=== PATIENT | male | born 1980 | race Hispanic/Latino ===

== ENCOUNTER 2020-10-09 17:58 | Inpatient (IN) | payer OTHER ==
--- NOTE | 2020-10-09 18:11 | Event Note ---
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 This initial assessment/diagnostic orders/clinical plan/treatment(s) is/are subject to change based on patients health status, clinical progression and re- assessment by fellow clinical providers in the ED. Further treatment and workup at subsequent clinical providers discretion. Patient/guardian urged not to elope from the ED as their condition may be serious if not clinically assessed and managed. Initial orders include: To ACC for rule out Covid/pneumonia/flu
[2020-10-09] MEDS ORDERED: ACETAMINOPHEN 500 MG TAB PO ONE (18:12)
[2020-10-09] MEDS ORDERED: SODIUM CHLORIDE 0.9% 1000 ML 1,000 ML IV ONE (18:13)
[2020-10-09 18:58] LABS: Basophils % (Auto) 0.2 % (0.0-1.8); Hematocrit 46.2 % (35.5-45.6); Hemoglobin 15.6 gm/dl (11.8-15.2); Lymphocytes # (Auto) 1.3 K/mm3 (1.2-5.4); Lymphocytes % (Auto) 13.4 % (13.4-35.0); Mean Corpuscular HGB Conc 34 % (32-34); Mean Corpuscular Volume 86 fl (84-94); Monocytes # (Auto) 0.7 K/mm3 (0.0-0.8); Monocytes % (Auto) 6.9 % (0.0-7.3); Platelet Count 235 K/mm3 (140-440); Red Blood Count 5.37 M/mm3 (3.65-5.03); Red Cell Distribution Width 13.5 % (13.2-15.2)
--- NOTE | 2020-10-09 19:05 | XRay Report ---
CHEST 1 VIEW INDICATION: COUGH, FEVER COMPARISON: None FINDINGS: Support devices: None Heart: Normal Lungs/Pleura: Minimal parenchymal density in the right base and right perihilar region. This could re present atelectasis, but developing pneumonia cannot be entirely excluded, and follow-up is suggested . IMPRESSION: 1. Minimal right-sided parenchymal disease. Suggest follow-up. Signer Name: David An MD Signed: 10/09/2020 7:01 PM Workstation Name: [id number]
[2020-10-09 19:10] LABS: Alanine Aminotransferase 28 units/L (7-56); Albumin 4.2 g/dL (3.9-5); BUN/Creatinine Ratio 13; Blood Urea Nitrogen 13 mg/dL (9-20); Calcium 8.8 mg/dL (8.4-10.2); Hemolysis Index 33
--- NOTE | 2020-10-09 19:32 | Emergency Department Report ---
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 He states that he has had negative Covid test performed on October 05 and . Cough is nonproductive. He denies significant dyspnea but noted to have a saturation of 90% on room air. He denies GI symptoms or underlying respiratory illness. ED Review of Systems ROS: Stated complaint: FEVER/BACK PAIN/COUGH Other details as noted in HPI Comment: All other systems reviewed and negative ED Past Medical Hx - Past Medical History Hx Hypertension: Yes - Surgical History Past Surgical History?: No ED Physical Exam - General Limitations: No Limitations - Other Other exam information: General: No acute distress Head: Atraumatic Eyes: normal appearance ENT: Moist mucous membranes Neck: Normal appearance, no midline tenderness Chest: Crackles right base, no accessory muscle use CV: Mild tachycardia evaluate Abdomen: Soft, normal bowel sounds, nontender, nondistended, no rebound or guarding Back: Normal inspection Extremity: Normal inspection, full range of motion Neuro: Alert O x 3, no facial asymmetry, speech clear, no gross motor sensory deficit Psych: Appropriate behavior Skin: No rash ED Course Vital Signs 10/09/20 10/09/20 10/10/20 18:11 18:43 01:02 Temperature 101.9 F H 97.7 F Pulse Rate 108 H 77 Respiratory 20 24 18 Rate Blood Pressure 122/80 103/65 O2 Sat by Pulse 90 96 Oximetry 10/10/20 01:05 Temperature Pulse Rate Respiratory 20 Rate Blood Pressure O2 Sat by Pulse 98 Oximetry ED Medical Decision Making - Lab Data Result diagrams: 10/10/20 04:28 10/10/20 04:28 Lab Results 10/09/20 10/09/20 10/09/20 Range/Units 18:36 18:36 18:36 WBC 10.0 (4.5-11.0) K/mm3 RBC 5.37 H (3.65-5.03) M/mm3 Hgb 15.6 H (11.8-15.2) gm/dl Hct 46.2 H (35.5-45.6) % MCV 86 (84-94) fl MCH 29 (28-32) pg MCHC 34 (32-34) % RDW 13.5 (13.2-15.2) % Plt Count 235 (140-440) K/mm3 Lymph % (Auto) 13.4 (13.4-35.0) % [place] % (Auto) 6.9 (0.0-7.3) % Eos % (Auto) 0.0 (0.0-4.3) % Baso % (Auto) 0.2 (0.0-1.8) % Lymph # (Auto) 1.3 (1.2-5.4) K/mm3 [place] # (Auto) 0.7 (0.0-0.8) K/mm3 Eos # (Auto) 0.0 (0.0-0.4) K/mm3 Baso # (Auto) 0.0 (0.0-0.1) K/mm3 Seg Neutrophils % 79.5 H (40.0-70.0) % Seg Neutrophils # 7.9 H (1.8-7.7) K/mm3 Sodium 133 L (137-145) mmol/L Potassium 4.0 (3.6-5.0) mmol/L Chloride 96.6 L (98-107) mmol/L Carbon Dioxide 24 (22-30) mmol/L Anion Gap 16 mmol/L BUN 13 (9-20) mg/dL Creatinine 1.0 (0.8-1.3) mg/dL Estimated GFR > 60 ml/min BUN/Creatinine Ratio 13 % Glucose 121 H (75-100) mg/dL Lactic Acid 1.10 (0.7-2.0) mmol/L Calcium 8.8 (8.4-10.2) mg/dL Total Bilirubin 0.40 (0.1-1.2) mg/dL AST 29 (5-40) units/L ALT 28 (7-56) units/L Alkaline Phosphatase 51 (35-129) units/L Total Protein 7.4 (6.3-8.2) g/dL Albumin 4.2 (3.9-5) g/dL Albumin/Globulin Ratio 1.3 % - Radiology Data Radiology results: report reviewed Chest x-ray: Mild right-sided parenchymal disease atelectasis with could also be developing pneumonia - Medical Decision Making 39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 Given clinical picture and x-ray findings patient be treated for community-acquired pneumonia and received decadron. He reports 2 recent negative rapid Covid test a repeat Covid test and order set will be ordered here in the ED. patient p rovided Tylenol for fever. Lactic acid normal without signs of severe sepsis or septic shock. ID Consult ordered. Hospitalist to admit. Critical Care Time: No Critical care attestation.: If time is entered above; I have spent that time in minutes in the direct care of this critically ill patient, excluding procedure time. ED Disposition Clinical Impression: Pneumonia, Hypoxia, Suspected 2019 novel coronavirus infection HTN (hypertension) Qualifiers: Hypertension type: essential hypertension Qualified Code(s): I10 - Essential (primary) hypertension Disposition: OP ADMIT IP TO THIS HOSP Is pt being admited?: Yes Condition: Stable Time of Disposition: 19:37 (DR Burdick/hospitalist)
[2020-10-09] MEDS ORDERED: cefTRIAXone/NS 2 GM/100 ML 2 GM/100 ML BAG IV ONE (19:35)
[2020-10-09] MEDS ORDERED: AZITHROMYCIN 500 MG in SODIUM CHLORIDE 0.9% 250ML 250 ML IV ONE (19:35)
[2020-10-09] MEDS ORDERED: dexAMETHasone 4 MG/ML VIAL IV ONE (19:39)
[2020-10-09 20:10] LABS: C-Reactive Protein 2.4 mg/dL (0.00-1.30)
--- NOTE | 2020-10-10 00:58 | History and Physical Report ---
History of Present Illness Date of examination: 10/09/20 Date of admission: 10/09/20 19:38 Chief complaint: Cough and fever since October 01 History of present illness: 39-year-old male with history of hypertension comes in for fever and cough since October 01 patient suspected, Covid tested on and .. No results were negative. Cough is persistent and nonproductive. No significant shortness of breath. Breath oxygen saturations were 90% on room air. Ambulatory sats were low. Denies any GI symptoms or anosmia or loss of taste. - Past Medical History --Hypertension: Yes - Surgical History --Past Surgical History?: No --Family and social history noncontributory Review of Systems ROS: Stated complaint: FEVER/BACK PAIN/COUGH Other details as noted in HPI Comment: All other systems reviewed and negative Medications and Allergies Allergies Allergy/AdvReac Type Severity Reaction Status Date / Time No Known Allergies Allergy Verified 10/09/20 19:37 Exam - Constitutional Vitals: Temp Pulse Resp BP Pulse Ox 101.9 F H 108 H 24 122/80 90 10/09/20 18:11 10/09/20 18:11 10/09/20 18:43 10/09/20 18:11 10/09/20 18:11 General appearance: Present: no acute distress, well-nourished - EENT Eyes: Present: PERRL ENT: hearing intact, clear oral mucosa - Neck Neck: Present: supple, normal ROM - Respiratory Respiratory effort: normal Respiratory: bilateral: CTA, rhonchi (Scattered rhonchi) - Cardiovascular Heart Sounds: Present: S1 & S2. Absent: rub, click - Extremities Extremities: pulses symmetrical, No edema Peripheral Pulses: within normal limits - Abdominal General gastrointestinal: Present: soft, non-tender, non-distended, normal bowel sounds Male genitourinary: Present: normal - Integumentary Integumentary: Present: clear, warm, dry - Musculoskeletal Musculoskeletal: gait normal, strength equal bilaterally - Psychiatric Psychiatric: appropriate mood/affect, intact judgment & insight - Neurologic Neurologic: CNII-XII intact, moves all extremities - Allied Health Allied health notes reviewed: nursing, case management Results - Labs CBC & Chem 7: 10/10/20 04:28 10/10/20 04:28 Labs: Laboratory Last Values WBC 10.0 K/mm3 (4.5-11.0) 10/09/20 18:36 RBC 5.37 M/mm3 (3.65-5.03) H 10/09/20 18:36 Hgb 15.6 gm/dl (11.8-15.2) H 10/09/20 18:36 Hct 46.2 % (35.5-45.6) H 10/09/20 18:36 MCV 86 fl (84-94) 10/09/20 18:36 MCH 29 pg (28-32) 10/09/20 18:36 MCHC 34 % (32-34) 10/09/20 18:36 RDW 13.5 % (13.2-15.2) 10/09/20 18:36 Plt Count 235 K/mm3 (140-440) 10/09/20 18:36 Lymph % (Auto) 13.4 % (13.4-35.0) 10/09/20 18:36 [place] % (Auto) 6.9 % (0.0-7.3) 10/09/20 18:36 Eos % (Auto) 0.0 % (0.0-4.3) 10/09/20 18:36 Baso % (Auto) 0.2 % (0.0-1.8) 10/09/20 18:36 Lymph # (Auto) 1.3 K/mm3 (1.2-5.4) 10/09/20 18:36 [place] # (Auto) 0.7 K/mm3 (0.0-0.8) 10/09/20 18:36 Eos # (Auto) 0.0 K/mm3 (0.0-0.4) 10/09/20 18:36 Baso # (Auto) 0.0 K/mm3 (0.0-0.1) 10/09/20 18:36 Seg Neutrophils % 79.5 % (40.0-70.0) H 10/09/20 18:36 Seg Neutrophils # 7.9 K/mm3 (1.8-7.7) H 10/09/20 18:36 D-Dimer 333.31 ng/mlDDU (0-234) H 10/09/20 19:34 Sodium 133 mmol/L (137-145) L 10/09/20 18:36 Potassium 4.0 mmol/L (3.6-5.0) 10/09/20 18:36 Chloride 96.6 mmol/L (98-107) L 10/09/20 18:36 Carbon Dioxide 24 mmol/L (22-30) 10/09/20 18:36 Anion Gap 16 mmol/L 10/09/20 18:36 BUN 13 mg/dL (9-20) 10/09/20 18:36 Creatinine 1.0 mg/dL (0.8-1.3) 10/09/20 18:36 Estimated GFR > 60 ml/min 10/09/20 18:36 BUN/Creatinine Ratio 13 % 10/09/20 18:36 Glucose 116 mg/dL (75-100) H 10/09/20 19:34 Lactic Acid 1.10 mmol/L (0.7-2.0) 10/09/20 18:36 Calcium 8.8 mg/dL (8.4-10.2) 10/09/20 18:36 Ferritin 702.8 ng/mL (30.0-300.0) H 10/09/20 19:34 Total Bilirubin 0.40 mg/dL (0.1-1.2) 10/09/20 18:36 AST 29 units/L (5-40) 10/09/20 18:36 ALT 28 units/L (7-56) 10/09/20 18:36 Alkaline Phosphatase 51 units/L (35-129) 10/09/20 18:36 Lactate Dehydrogenase 324 units/L (91-180) H 10/09/20 19:34 C-Reactive Protein 2.40 mg/dL (0.00-1.30) H 10/09/20 19:34 Total Protein 7.4 g/dL (6.3-8.2) 10/09/20 18:36 Albumin 4.2 g/dL (3.9-5) 10/09/20 18:36 Albumin/Globulin Ratio 1.3 % 10/09/20 18:36 Influenza A (Rapid) Negative (Negative) 10/09/20 18:50 Influenza B (Rapid) Negative (Negative) 10/09/20 18:50 - Imaging and Cardiology Chest x-ray: report reviewed Imaging and Cardiology: Chest x-ray Minimal right-sided parenchymal disease Suggest follow-up Perez/IV: IV Catheter Type [Left INT / Saline Lock Antecubital] Assessment and Plan Advance Directives: Yes (Full code) Plan of care discussed with patient/family: Yes - Patient Problems (1) Acute respiratory failure with hypoxia Current Visit: Yes Status: Acute Plan to address problem: Patient is room air oxygen saturation 90% and ambulatory oxygen is about 84%. Patient is hypoxic and needs lots of oxygen supplements. Coronavirus in the differential diagnosis. (2) Right lower lobe pneumonia Current Visit: Yes Status: Acute Plan to address problem: Treat as community-acquired pneumonia for now. Patient started on IV ceftriaxone and IV azithromycin. (3) Suspected 2019 novel coronavirus infection Current Visit: Yes Status: Acute Plan to address problem: Coronavirus PCR ordered Inflammatory markers are elevated (4) HTN (hypertension) Current Visit: Yes Status: Chronic Qualifiers: Hypertension type: essential hypertension Qualified Code(s): I10 - Ess ential (primary) hypertension Plan to address problem: Continue antihypertensives and adjust medications as necessary (5) DVT prophylaxis Current Visit: Yes Status: Acute Plan to address problem: On Lovenox and GI prophylaxis
[2020-10-10] MEDS ORDERED: ONDANSETRON 4 MG/2 ML INJ IV PRN (01:57)
[2020-10-10] MEDS ORDERED: oxyCODONE /ACETAMINOPHEN 5-325MG TAB PO PRN (01:57)
[2020-10-10] MEDS ORDERED: HYDROmorphone 1 MG/1 ML INJ IV PRN (01:57)
[2020-10-10 03:28] LABS: Bilirubin,Urine NEG (Negative); Blood,Urine NEG (Negative); Color,Urine Yellow (Yellow); Mucus,Urine FEW /HPF; Protein,Urine <15 mg/dL mg/dL (Negative); Urobilinogen,Urine < 2.0 mg/dL (<2.0)
[2020-10-10] MEDS: ASCORBIC ACID 500 MG TAB PO SCH ×3 (04:23→22:20)
[2020-10-10] MEDS: FAMOTIDINE 20 MG TAB PO SCH ×3 (04:23→22:20)
[2020-10-10 06:02] LABS: Basophils % (Auto) 0.2 % (0.0-1.8); Hematocrit 47.3 % (35.5-45.6); Lymphocytes % (Auto) 19.3 % (13.4-35.0); Mean Corpuscular HGB Conc 34 % (32-34); Mean Corpuscular Volume 86 fl (84-94); Monocytes # (Auto) 0.1 K/mm3 (0.0-0.8); Monocytes % (Auto) 2.3 % (0.0-7.3); Platelet Count 250 K/mm3 (140-440); Red Cell Distribution Width 13.6 % (13.2-15.2)
[2020-10-10 06:21] LABS: Alanine Aminotransferase 26 units/L (7-56); Albumin 4.3 g/dL (3.9-5); BUN/Creatinine Ratio 15; Blood Urea Nitrogen 12 mg/dL (9-20); Calcium 8.7 mg/dL (8.4-10.2); Hemolysis Index 7
[2020-10-10] MEDS: CHOLECALCIFEROL (VIT D3) 5,000 UNIT TAB PO SCH (09:39)
[2020-10-10] MEDS: dexAMETHasone 4 MG/ML VIAL IV SCH (09:40)
[2020-10-10] MEDS ORDERED: cefTRIAXone/NS 2 GM/100 ML 2 GM/100 ML BAG IV SCH (10:00)
[2020-10-10] MEDS ORDERED: AZITHROMYCIN 500 MG in SODIUM CHLORIDE 0.9% 250ML 250 ML IV SCH (10:00)
--- NOTE | 2020-10-10 17:15 | Consultation ---
History of Present Illness - Reason for Consult Consult date: 10/10/20 - History of Present Illness 3-year-old man past medical history hypertension admitted to the hospital complaining of cough and fevers. His symptoms began approximately October 01. He had repeat negative Covid test on October 05 and October 08. On presentation to ER test positive for COVID-19. Febrile to 101.9 on admission with a white count of 5. Covid positive. Procalcitonin normal. Renal function normal. Currently ceftriaxone azithromycin. Mildly hypoxic but not below 90%,, however ambulatory oxygen at 84%. Imaging personally reviewed: Chest x-ray: Right-sided parenchymal disease Review of systems: Deferred due to PPE conservation strategy. Past History Past Medical History: No medical history Past Surgical History: No surgical history Social history: no significant social history Family history: no significant family history Medications and Allergies Allergies Allergy/AdvReac Type Severity Reaction Status Date / Time No Known Allergies Allergy Verified 10/09/20 19:37 Active Meds: Active Medications Acetaminophen (Acetaminophen 325 Mg Tab) 650 mg PO Q4H PRN PRN Reason: Pain MILD(1-3)/Fever >100.5/ARCHER Ascorbic Acid (Ascorbic Acid 500 Mg Tab) 1,000 mg PO BID [facility] Last Admin: 10/10/20 09:39 Dose: 1,000 mg Documented by: Cholecalciferol (Cholecalciferol (Vit D3) 5,000 Unit Tab) 5,000 unit PO DAILY [facility] Last Admin: 10/10/20 09:39 Dose: 5,000 unit Documented by: Dexamethasone (Dexamethasone 4 Mg/Ml Vial) 8 mg IV Q24HR [facility] Last Admin: 10/10/20 09:40 Dose: 8 mg Documented by: Enoxaparin Sodium (Enoxaparin 40 Mg/0.4 Ml Inj) 40 mg SUB-Q QDAY@2200 [facility]; Protocol Famotidine (Famotidine 20 Mg Tab) 20 mg PO BID [facility] Last Admin: 10/10/20 09:39 Dose: 20 mg Documented by: Hydromorphone HCl (Hydromorphone 1 Mg/1 Ml Inj) 0.5 mg IV Q3H PRN PRN Reason: Pain , Severe (7-10) Azithromycin 500 mg/ Sodium (Chloride) 250 mls @ 250 mls/hr IV Q24HR [facility]; Protocol Last Admin: 10/10/20 12:38 Dose: 250 mls/hr Documented by: Ceftriaxone Sodium (Rocephin/Ns 2 Gm/100 Ml) 2 gm in 100 mls @ 200 mls/hr IV Q24HR [facility]; Protocol Last Admin: 10/10/20 09:40 Dose: 200 mls/hr Documented by: Ondansetron HCl (Ondansetron 4 Mg/2 Ml Inj) 4 mg IV Q8H PRN PRN Reason: Nausea And Vomiting Oxycodone/Acetaminophen (Oxycodone /Acetaminophen 5-325mg Tab) 1 tab PO Q6H PRN PRN Reason: Pain, Moderate (4-6) Sodium Chloride (Sodium Chloride 0.9% 10 Ml Flush Syringe) 10 ml IV BID [facility] Last Admin: 10/10/20 09:40 Dose: 10 ml Documented by: Sodium Chloride (Sodium Chloride 0.9% 10 Ml Flush Syringe) 10 ml IV PRN PRN PRN Reason: LINE FLUSH Physical Examination - Physical Exam Narrative exam: Physical exam deferred due to PPE conservation strategy. Please refer to primary team's note. - Constitutional Vitals: Vital Signs Temp Pulse Resp BP Pulse Ox 98.2 F 91 H 19 111/73 95 10/10/20 12:04 10/10/20 12:04 10/10/20 12:04 10/10/20 12:04 10/10/20 12:04 Temperature -Last 24 Hours Temperature 98.2 F Temperature 97.5 F Temperature 97.7 F Temperature 101.9 F Results - Labs CBC & Chem 7: 10/10/20 04:28 10/10/20 04:28 Labs: Abnormal lab results 10/09/20 10/09/20 10/09/20 Range/Units 18:36 18:36 19:34 RBC 5.37 H (3.65-5.03) M/mm3 Hgb 15.6 H (11.8-15.2) gm/dl Hct 46.2 H (35.5-45.6) % Lymph # (Auto) (1.2-5.4) K/mm3 Seg Neutrophils % 79.5 H (40.0-70.0) % Seg Neutrophils # 7.9 H (1.8-7.7) K/mm3 D-Dimer 333.31 H (0-234) ng/mlDDU Sodium 133 L (137-145) mmol/L Chloride 96.6 L (98-107) mmol/L Glucose 121 H (75-100) mg/dL Hemoglobin A1c (4-6) % Ferritin (30.0-300.0) ng/mL Lactate Dehydrogenase (91-180) units/L C-Reactive Protein (0.00-1.30) mg/dL Coronavirus (PCR) (Negative) 10/09/20 10/09/20 10/10/20 Range/Units 19:34 19:34 04:28 RBC 5.50 H (3.65-5.03) M/mm3 Hgb 16.0 H (11.8-15.2) gm/dl Hct 47.3 H (35.5-45.6) % Lymph # (Auto) 1.0 L (1.2-5.4) K/mm3 Seg Neutrophils % 78.2 H (40.0-70.0) % Seg Neutrophils # (1.8-7.7) K/mm3 D-Dimer (0-234) ng/mlDDU Sodium (137-145) mmol/L Chloride (98-107) mmol/L Glucose 116 H (75-100) mg/dL Hemoglobin A1c (4-6) % Ferritin 702.8 H (30.0-300.0) ng/mL Lactate Dehydrogenase 324 H (91-180) units/L C-Reactive Protein 2.40 H (0.00-1.30) mg/dL Coronavirus (PCR) (Negative) 10/10/20 10/10/20 10/10/20 Range/Units 04:28 04:28 09:00 RBC (3.65-5.03) M/mm3 Hgb (11.8-15.2) gm/dl Hct (35.5-45.6) % Lymph # (Auto) (1.2-5.4) K/mm3 Seg Neutrophils % (40.0-70.0) % Seg Neutrophils # (1.8-7.7) K/mm3 D-Dimer (0-234) ng/mlDDU Sodium (137-145) mmol/L Chloride (98-107) mmol/L Glucose 168 H (75-100) mg/dL Hemoglobin A1c 6.5 H (4-6) % Ferritin (30.0-300.0) ng/mL Lactate Dehydrogenase (91-180) units/L C-Reactive Protein (0.00-1.30) mg/dL Coronavirus (PCR) Positive A (Negative) Assessment and Plan Cultures: COVID positive A/P: 39-year-old man past medical history hypertension admitted with COVID-19 #COVID-19 pneumonia: Patient presented with 10 days of symptoms, chest x-ray with right-sided infiltrate, ambulatory O2 sat 84%. Had 2 negative outpatient test. #Acute hypoxemic respiratory failure: Likely secondary to COVID-19 infection. Currently on room air Recs: -Dexamethasone 6 mg IV/PO daily for 10 days -Can defer on remdesivir for now as needed minimal hypoxic. If he begins to require nasal cannula greater than 2 L would start remdesivir. -Obtain daily inflammatory markers - ferritin, Ddimer, CRP, LDH -Anticoagulation per hospital protocol -Proning as able Thank you for the consult, we will continue to follow. MD Keyanna Mckeon [facility] ([facility] O: [phone] F: [phone]
[2020-10-10] MEDS: ENOXAPARIN 40 MG/0.4 ML INJ SUB-Q SCH (22:20)
--- NOTE | 2020-10-10 23:18 | Progress Note ---
Assessment and Plan - Patient Problems (1) Acute respiratory failure with hypoxia Current Visit: Yes Status: Acute Plan to address problem: Patient is room air oxygen saturation 90% and ambulatory oxygen is about 84%. Patient is hypoxic and needs oxygen supplements Coronavirus in the differential diagnosis. (2) Right lower lobe pneumonia Current Visit: Yes Status: Acute Plan to address problem: Treat as community-acquired pneumonia for now. Patient started on IV ceftriaxone and IV azithromycin. (3) Suspected 2019 novel coronavirus infection Current Visit: Yes Status: Acute Plan to address problem: Coronavirus PCR positive Inflammatory markers are elevated IV dexamethasone ordered (4) HTN (hypertension) Current Visit: Yes Status: Chronic Qualifiers: Hypertension type: essential hypertension Qualified Code(s): I10 - [place] l (primary) hypertension Plan to address problem: Continue antihypertensives and adjust medications as necessary (5) DVT prophylaxis Current Visit: Yes Status: Acute Plan to address problem: On Lovenox and GI prophylaxis Subjective Date of service: 10/10/20 Principal diagnosis: Covid pneumonia Interval history: 39-year-old male with history of hypertension comes in for fever and cough since October 01 patient suspected, Covid tested on and .. No results were negative. Cough is persistent and nonproductive. No significant shortness of breath. Breath oxygen saturations were 90% on room air. Ambulatory sats were low. Denies any GI symptoms or anosmia or loss of taste. Day #2 10/10/2020 Patient slightly hypoxic Patient on 2 L nasal cannula oxygen IV Decadron for 10 days Objective - Constitutional Vitals: Vital Signs - 12hr 10/10/20 10/10/20 12:04 15:49 Temperature 98.2 F 97.9 F Pulse Rate 91 H 95 H Respiratory 19 19 Rate Blood Pressure 111/73 117/77 O2 Sat by Pulse 95 95 Oximetry General appearance: Present: no acute distress, well-nourished - EENT Eyes: PERRL, EOM intact ENT: hearing intact, clear oral mucosa Ears: bilateral: normal - Neck Neck: supple, normal ROM - Respiratory Respiratory effort: normal Respiratory: bilateral: CTA - Breasts Breasts: normal - Cardiovascular Rhythm: regular Heart Sounds: Present: S1 & S2. Absent: gallop, rub Extremities: pulses intact, No edema, normal color, Full ROM - Gastrointestinal General gastrointestinal: Present: soft, non-tender, non-distended, normal bowel sounds - Genitourinary Male genitourinary: normal - Integumentary Integumentary: clear, warm, dry - Musculoskeletal Musculoskeletal: 1, strength equal bilaterally - Neurologic Neurologic: moves all extremities - Psychiatric Psychiatric: memory intact, appropriate mood/affect, intact judgment & insight - Labs CBC & Chem 7: 10/11/20 05:08 10/11/20 05:08 Labs: Abnormal lab results 10/10/20 10/10/20 10/10/20 Range/Units 04:28 04:28 04:28 RBC 5.50 H (3.65-5.03) M/mm3 Hgb 16.0 H (11.8-15.2) gm/dl Hct 47.3 H (35.5-45.6) % Lymph # (Auto) 1.0 L (1.2-5.4) K/mm3 Seg Neutrophils % 78.2 H (40.0-70.0) % Glucose 168 H (75-100) mg/dL Hemoglobin A1c 6.5 H (4-6) % Coronavirus (PCR) (Negative) 10/10/20 Range/Units 09:00 RBC (3.65-5.03) M/mm3 Hgb (11.8-15.2) gm/dl Hct (35.5-45.6) % Lymph # (Auto) (1.2-5.4) K/mm3 Seg Neutrophils % (40.0-70.0) % Glucose (75-100) mg/dL Hemoglobin A1c (4-6) % Coronavirus (PCR) Positive A (Negative)
[2020-10-11 06:57] LABS: Hematocrit 43.2 % (35.5-45.6); Hemoglobin 14.5 gm/dl (11.8-15.2); Lymphocytes # (Auto) 0.9 K/mm3 (1.2-5.4); Lymphocytes % (Auto) 7.7 % (13.4-35.0); Mean Corpuscular HGB Conc 33 % (32-34); Mean Corpuscular Volume 86 fl (84-94); Monocytes # (Auto) 0.8 K/mm3 (0.0-0.8); Monocytes % (Auto) 6.8 % (0.0-7.3); Platelet Count 280 K/mm3 (140-440); Red Blood Count 5.03 M/mm3 (3.65-5.03); Red Cell Distribution Width 13.7 % (13.2-15.2)
[2020-10-11 07:26] LABS: BUN/Creatinine Ratio 14; Blood Urea Nitrogen 11 mg/dL (9-20); Calcium 8.7 mg/dL (8.4-10.2); Hemolysis Index 7
[2020-10-11] MEDS: CHOLECALCIFEROL (VIT D3) 5,000 UNIT TAB PO SCH (10:31)
[2020-10-11] MEDS: ASCORBIC ACID 500 MG TAB PO SCH ×2 (10:31→22:19)
[2020-10-11] MEDS: FAMOTIDINE 20 MG TAB PO SCH ×2 (10:31→22:19)
[2020-10-11] MEDS: dexAMETHasone 4 MG/ML VIAL IV SCH (10:31)
--- NOTE | 2020-10-11 20:31 | Progress Note ---
Assessment and Plan - Patient Problems (1) Acute respiratory failure with hypoxia Current Visit: Yes Status: Acute Plan to address problem: Patient is room air oxygen saturation 90% and ambulatory oxygen is about 84%. Patient is hypoxic and needs oxygen supplements Coronavirus in the differential diagnosis. (2) Right lower lobe pneumonia Current Visit: Yes Status: Acute Plan to address problem: Treat as community-acquired pneumonia for now. Patient started on IV ceftriaxone and IV azithromycin. (3) Suspected 2019 novel coronavirus infection Current Visit: Yes Status: Acute Plan to address problem: Coronavirus PCR positive Inflammatory markers are elevated IV dexamethasone ordered (4) HTN (hypertension) Current Visit: Yes Status: Chronic Qualifiers: Hypertension type: essential hypertension Qualified Code(s): I10 - Essentia l (primary) hypertension Plan to address problem: Continue antihypertensives and adjust medications as necessary (5) DVT prophylaxis Current Visit: Yes Status: Acute Plan to address problem: On Lovenox and GI prophylaxis Subjective Date of service: 10/11/20 Principal diagnosis: Covid pneumonia Interval history: 39-year-old male with history of hypertension comes in for fever and cough since October 01 patient suspected, Covid tested on and .. No results were negative. Cough is persistent and nonproductive. No significant shortness of breath. Breath oxygen saturations were 90% on room air. Ambulatory sats were low. Denies any GI symptoms or anosmia or loss of taste. Day #2 10/10/2020 Patient slightly hypoxic Patient on 2 L nasal cannula oxygen IV Decadron for 10 days Day #3 11/10/2020 Patient on 2 L nasal cannula oxygen Objective - Constitutional Vitals: Vital Signs - 12hr 10/11/20 10/11/20 10:33 13:16 Temperature 100.3 F H Pulse Rate 107 H Respiratory 20 Rate Blood Pressure 104/65 O2 Sat by Pulse 96 92 Oximetry General appearance: Present: no acute distress, well-nourished - EENT Eyes: PERRL, EOM intact ENT: hearing intact, clear oral mucosa Ears: bilateral: normal - Neck Neck: supple, normal ROM - Respiratory Respiratory effort: normal Respiratory: bilateral: CTA - Breasts Breasts: normal - Cardiovascular Heart rate: 78 Rhythm: regular Heart Sounds: Present: S1 & S2. Absent: gallop, rub Extremities: pulses intact, No edema, normal color, Full ROM - Gastrointestinal General gastrointestinal: Present: soft, non-tender, non-distended, normal bowel sounds - Genitourinary Male genitourinary: normal - Integumentary Integumentary: clear, warm, dry - Musculoskeletal Musculoskeletal: 1, strength equal bilaterally - Neurologic Neurologic: moves all extremities - Psychiatric Psychiatric: memory intact, appropriate mood/affect, intact judgment & insight - Labs CBC & Chem 7: 10/11/20 05:08 10/11/20 05:08 Labs: Abnormal lab results 10/11/20 10/11/20 Range/Units 05:08 05:08 WBC 12.3 H (4.5-11.0) K/mm3 Lymph % (Auto) 7.7 L (13.4-35.0) % Lymph # (Auto) 0.9 L (1.2-5.4) K/mm3 Seg Neutrophils % 85.5 H (40.0-70.0) % Seg Neutrophils # 10.5 H (1.8-7.7) K/mm3 Glucose 142 H (75-100) mg/dL
[2020-10-11] MEDS: guaiFENesin/CODEINE 100-10MG ORAL LIQD 5 ML PO PRN (22:16)
[2020-10-11] MEDS: ENOXAPARIN 40 MG/0.4 ML INJ SUB-Q SCH (22:20)
[2020-10-12 06:27] LABS: Basophils % (Auto) 0.1 % (0.0-1.8); Hematocrit 42.5 % (35.5-45.6); Hemoglobin 14.1 gm/dl (11.8-15.2); Lymphocytes # (Auto) 0.7 K/mm3 (1.2-5.4); Lymphocytes % (Auto) 5.9 % (13.4-35.0); Mean Corpuscular HGB Conc 33 % (32-34); Mean Corpuscular Volume 86 fl (84-94); Monocytes % (Auto) 8.4 % (0.0-7.3); Platelet Count 313 K/mm3 (140-440); Red Blood Count 4.97 M/mm3 (3.65-5.03); Red Cell Distribution Width 13.6 % (13.2-15.2)
[2020-10-12 06:45] LABS: Alanine Aminotransferase 31 units/L (7-56); Albumin 3.9 g/dL (3.9-5); BUN/Creatinine Ratio 15; Blood Urea Nitrogen 12 mg/dL (9-20); Calcium 8.7 mg/dL (8.4-10.2); Hemolysis Index 3
[2020-10-12] MEDS: CHOLECALCIFEROL (VIT D3) 5,000 UNIT TAB PO SCH (12:11)
[2020-10-12] MEDS: ASCORBIC ACID 500 MG TAB PO SCH ×2 (12:11→21:14)
[2020-10-12] MEDS: FAMOTIDINE 20 MG TAB PO SCH ×2 (12:11→21:18)
[2020-10-12] MEDS: dexAMETHasone 4 MG/ML VIAL IV SCH (12:11)
[2020-10-12] MEDS ORDERED: REMDESIVIR 100 MG VIAL IV ONE (12:30)
[2020-10-12] MEDS ORDERED: REMDESIVIR 200 MG in SODIUM CHLORIDE 0.9% 250ML 250 ML IV ONE (12:30)
[2020-10-12] MEDS: ACETAMINOPHEN 325 MG TAB PO PRN ×3 (13:55→23:50)
[2020-10-12] MEDS: SODIUM CHLORIDE 0.9% 50 ML IVPB IV SCH (14:53)
--- NOTE | 2020-10-12 20:32 | Progress Note ---
Assessment and Plan - Patient Problems (1) Acute respiratory failure with hypoxia Current Visit: Yes Status: Acute Plan to address problem: Patient is room air oxygen saturation 90% and ambulatory oxygen is about 84%. Patient is hypoxic and needs oxygen supplements Coronavirus positive (2) Right lower lobe pneumonia Current Visit: Yes Status: Acute Plan to address problem: Treat as community-acquired pneumonia for now. (3) Suspected 2019 novel coronavirus infection Current Visit: Yes Status: Acute Plan to address problem: Coronavirus PCR positive Inflammatory markers are elevated IV dexamethasone for now IV remdesivir started (4) HTN (hypertension) Current Visit: Yes Status: Chronic Qualifiers: Hypertension type: essential hypertension Qualified Code(s): I10 - Essential (primary) hypertension Plan to address problem: Continue antihypertensives and adjust medications as necessary (5) DVT prophylaxis Current Visit: Yes Status: Acute Plan to address problem: On Lovenox and GI prophylaxis Subjective Date of service: 10/12/20 Principal diagnosis: Covid pneumonia Interval history: 39-year-old male with history of hypertension comes in for fever and cough since October 01 patient suspected, Covid tested on and .. No results were negative. Cough is persistent and nonproductive. No significant shortness of breath. Breath oxygen saturations were 90% on room air. Ambulatory sats were low. Denies any GI symptoms or anosmia or loss of taste. Day #2 10/10/2020 Patient slightly hypoxic Patient on 2 L nasal cannula oxygen IV Decadron for 10 days Day #3 10/11/2020 Patient on 2 L nasal cannula oxygen Objective - Constitutional Vitals: Vital Signs - 12hr 10/12/20 10/12/20 10:48 12:21 Temperature 100.3 F H Pulse Rate 99 H Respiratory 18 Rate Blood Pressure 105/56 O2 Sat by Pulse 94 94 Oximetry General appearance: Present: no acute distress, well-nourished - EENT Eyes: PERRL, EOM intact ENT: hearing intact, clear oral mucosa Ears: bilateral: normal - Neck Neck: supple, normal ROM - Respiratory Respiratory effort: normal Respiratory: bilateral: CTA - Breasts Breasts: normal - Cardiovascular Heart rate: 78 Rhythm: regular Heart Sounds: Present: S1 & S2. Absent: gallop, rub Extremities: pulses intact, No edema, normal color, Full ROM - Gastrointestinal General gastrointestinal: Present: soft, non-tender, non-distended, normal bowel sounds - Genitourinary Male genitourinary: normal - Integumentary Integumentary: clear, warm, dry - Musculoskeletal Musculoskeletal: 1, strength equal bilaterally - Neurologic Neurologic: moves all extremities - Psychiatric Psychiatric: memory intact, appropriate mood/affect, intact judgment & insight - Labs CBC & Chem 7: 10/12/20 04:46 10/13/20 04:58 Labs: Abnormal lab results 10/12/20 10/12/20 Range/Units 04:46 04:46 WBC 12.5 H (4.5-11.0) K/mm3 Lymph % (Auto) 5.9 L (13.4-35.0) % [place] % (Auto) 8.4 H (0.0-7.3) % Lymph # (Auto) 0.7 L (1.2-5.4) K/mm3 [place] # (Auto) 1.0 H (0.0-0.8) K/mm3 Seg Neutrophils % 85.6 H (40.0-70.0) % Seg Neutrophils # 10.7 H (1.8-7.7) K/mm3 Glucose 139 H (75-100) mg/dL
[2020-10-12] MEDS: ENOXAPARIN 40 MG/0.4 ML INJ SUB-Q SCH (21:18)
[2020-10-13 06:29] LABS: Alanine Aminotransferase 50 units/L (7-56); Albumin 3.8 g/dL (3.9-5); BUN/Creatinine Ratio 18; Blood Urea Nitrogen 14 mg/dL (9-20); Calcium 8.8 mg/dL (8.4-10.2); Hemolysis Index 4
[2020-10-13] MEDS: FAMOTIDINE 20 MG TAB PO SCH ×2 (10:34→22:07)
[2020-10-13] MEDS: ASCORBIC ACID 500 MG TAB PO SCH ×2 (10:34→22:07)
[2020-10-13] MEDS: CHOLECALCIFEROL (VIT D3) 5,000 UNIT TAB PO SCH (10:34)
[2020-10-13] MEDS: dexAMETHasone 4 MG/ML VIAL IV SCH (10:34)
--- NOTE | 2020-10-13 12:17 | Progress Note ---
Assessment and Plan Cultures: COVID positive A/P: 39-year-old man past medical history hypertension admitted with COVID-19 #COVID-19 pneumonia: Patient presented with 10 days of symptoms, chest x-ray with right-sided infiltrate, ambulatory O2 sat 84%. Had 2 negative outpatient test. #Acute hypoxemic respiratory failure: Likely secondary to COVID-19 infection. Currently on 2 L nasal cannula Recs: -Dexamethasone 6 mg IV/PO daily for 10 days -Now on remdesivir due to hypoxia. Complete 5 days. Monitor renal and hepatic function while receiving. Okay to discharge prior to completion of course if he is improved. -Obtain daily inflammatory markers - ferritin, Ddimer, CRP, LDH -Anticoagulation per hospital protocol -Proning as able Thank you for the consult, we will continue to follow. Kylie Garcia MD [facility] ([facility] O: [phone] F: [phone] Subjective Date of service: 10/13/20 Principal diagnosis: Covid pneumonia Interval history: Febrile to 102.6 overnight. Currently on dexamethasone and remdesivir. White count 12.5 yesterday. Was on 2 L nasal cannula yesterday. Objective - Exam Narrative Exam: Physical exam deferred due to PPE conservation strategy. Please refer to primary team's note. - Constitutional Vitals: Vital Signs Temp Pulse Resp BP Pulse Ox 98.6 F 81 16 111/72 95 10/13/20 05:44 10/13/20 05:44 10/13/20 05:44 10/13/20 05:44 10/13/20 05:44 Temperature -Last 24 Hours Temperature 98.6 F Temperature 99.5 F Temperature 100.4 F Temperature 102.6 F Temperature 98.2 F - Labs CBC & Chem 7: 10/12/20 04:46 10/13/20 04:58 Labs: Abnormal lab results 10/13/20 Range/Units 04:58 Glucose 134 H (75-100) mg/dL Albumin 3.8 L (3.9-5) g/dL
[2020-10-13] MEDS: REMDESIVIR 100 MG in SODIUM CHLORIDE 0.9% 250ML 250 ML IV SCH (22:06)
[2020-10-13] MEDS: ENOXAPARIN 40 MG/0.4 ML INJ SUB-Q SCH (22:06)
[2020-10-13] MEDS: SODIUM CHLORIDE 0.9% 50 ML IVPB IV SCH (22:07)
[2020-10-14 06:32] LABS: Alanine Aminotransferase 55 units/L (7-56); Albumin 3.8 g/dL (3.9-5); Blood Urea Nitrogen 18 mg/dL (9-20); Calcium 8.9 mg/dL (8.4-10.2); Hemolysis Index 3
[2020-10-14 06:44] LABS: BUN/Creatinine Ratio 26
--- NOTE | 2020-10-14 08:32 | Progress Note ---
Assessment and Plan Cultures: COVID positive A/P: 39-year-old man past medical history hypertension admitted with COVID-19 #COVID-19 pneumonia: Patient presented with 10 days of symptoms, chest x-ray with right-sided infiltrate, ambulatory O2 sat 84%. Had 2 negative outpatient test. #Acute hypoxemic respiratory failure: Likely secondary to COVID-19 infection. Remains on 2L NC Recs: -Dexamethasone 6 mg IV/PO daily for 10 days -Continue remdesivir D2 of 5. Okay to discharge prior to completion of course if he is improved. -Obtain daily inflammatory markers - ferritin, Ddimer, CRP, LDH- ordered today -Anticoagulation per hospital protocol -Proning as able will continue to follow. Laurita Rubin MD [facility] ([facility]) Office [phone] Subjective Date of service: 10/14/20 Principal diagnosis: Covid pneumonia Interval history: Patient remains on 2 L, no desaturations overnight, no acute issues Objective - Exam Narrative Exam: Physical Exam: reviewed ED and hospitalist notes. Deferred to prevent COVID-19 transmission. - Constitutional Vitals: Vital Signs Temp Pulse Resp BP Pulse Ox 98.0 F 71 6 L 109/74 95 10/14/20 05:58 10/14/20 05:58 10/14/20 05:58 10/14/20 05:58 10/14/20 05:58 Temperature -Last 24 Hours Temperature 98.0 F Temperature 98.1 F Temperature 98.6 F Temperature 99.7 F - Labs CBC & Chem 7: 10/12/20 04:46 10/14/20 05:14 Labs: Abnormal lab results 10/14/20 Range/Units 05:14 Creatinine 0.7 L (0.8-1.3) mg/dL Glucose 159 H (75-100) mg/dL Albumin 3.8 L (3.9-5) g/dL
[2020-10-14] MEDS: dexAMETHasone 4 MG/ML VIAL IV SCH (09:52)
[2020-10-14] MEDS: ASCORBIC ACID 500 MG TAB PO SCH ×2 (09:53→21:47)
[2020-10-14] MEDS: CHOLECALCIFEROL (VIT D3) 5,000 UNIT TAB PO SCH (09:53)
[2020-10-14] MEDS: FAMOTIDINE 20 MG TAB PO SCH ×2 (09:53→21:47)
[2020-10-14 11:18] LABS: C-Reactive Protein 4.1 mg/dL (0.00-1.30)
--- NOTE | 2020-10-14 12:25 | Progress Note ---
Assessment and Plan Assessment and plan: Acute hypoxic respiratory failure. Etiology secondary to COVID-19 pneumonia.. Continue supplemental oxygen to maintain saturation greater than 92%. Exercise pulse oximetry testing. COVID-19 pneumonia. Chest x-ray reveals right-sided infiltrate. Continue dexamethasone 6 mg for 10 days. Continue remdesivir. Continue to trend inflammatory markers. Anticoagulation per protocol. Proning as possible History Interval history: No new issues Hospitalist Physical - Constitutional Vitals: Temp Pulse Resp BP Pulse Ox 98.0 F 71 6 L 109/74 94 10/14/20 05:58 10/14/20 05:58 10/14/20 05:58 10/14/20 05:58 10/14/20 10:30 General appearance: Present: no acute distress, well-nourished - EENT Eyes: Present: PERRL, EOM intact ENT: hearing intact, clear oral mucosa, dentition normal - Neck Neck: Present: supple, normal ROM - Respiratory Respiratory effort: normal Respiratory: bilateral: CTA - Cardiovascular Rhythm: regular Heart Sounds: Present: S1 & S2. Absent: gallop, rub - Extremities Extremities: no ischemia, No edema, Full ROM - Abdominal General gastrointestinal: soft, non-tender, non-distended, normal bowel sounds - Integumentary Integumentary: Present: clear, warm, dry - Neurologic Neurologic: CNII-XII intact, moves all extremities Results - Labs CBC & Chem 7: 10/12/20 04:46 10/14/20 05:14 Labs: Laboratory Last Values WBC 12.5 K/mm3 (4.5-11.0) H 10/12/20 04:46 RBC 4.97 M/mm3 (3.65-5.03) 10/12/20 04:46 Hgb 14.1 gm/dl (11.8-15.2) 10/12/20 04:46 Hct 42.5 % (35.5-45.6) 10/12/20 04:46 MCV 86 fl (84-94) 10/12/20 04:46 MCH 28 pg (28-32) 10/12/20 04:46 MCHC 33 % (32-34) 10/12/20 04:46 RDW 13.6 % (13.2-15.2) 10/12/20 04:46 Plt Count 313 K/mm3 (140-440) 10/12/20 04:46 Lymph % (Auto) 5.9 % (13.4-35.0) L 10/12/20 04:46 [place] % (Auto) 8.4 % (0.0-7.3) H 10/12/20 04:46 Eos % (Auto) 0.0 % (0.0-4.3) 10/12/20 04:46 Baso % (Auto) 0.1 % (0.0-1.8) 10/12/20 04:46 Lymph # (Auto) 0.7 K/mm3 (1.2-5.4) L 10/12/20 04:46 [place] # (Auto) 1.0 K/mm3 (0.0-0.8) H 10/12/20 04:46 Eos # (Auto) 0.0 K/mm3 (0.0-0.4) 10/12/20 04:46 Baso # (Auto) 0.0 K/mm3 (0.0-0.1) 10/12/20 04:46 Seg Neutrophils % 85.6 % (40.0-70.0) H 10/12/20 04:46 Seg Neutrophils # 10.7 K/mm3 (1.8-7.7) H 10/12/20 04:46 D-Dimer 246.52 ng/mlDDU (0-234) H 10/14/20 10:37 Sodium 139 mmol/L (137-145) 10/14/20 05:14 Potassium 4.4 mmol/L (3.6-5.0) 10/14/20 05:14 Chloride 102.8 mmol/L (98-107) 10/14/20 05:14 Carbon Dioxide 29 mmol/L (22-30) 10/14/20 05:14 Anion Gap 12 mmol/L 10/14/20 05:14 BUN 18 mg/dL (9-20) 10/14/20 05:14 Creatinine 0.7 mg/dL (0.8-1.3) L 10/14/20 05:14 Estimated GFR > 60 ml/min 10/14/20 05:14 BUN/Creatinine Ratio 26 % 10/14/20 05:14 Glucose 159 mg/dL (75-100) H 10/14/20 05:14 Hemoglobin A1c 6.5 % (4-6) H 10/10/20 04:28 Lactic Acid 1.10 mmol/L (0.7-2.0) 10/09/20 18:36 Calcium 8.9 mg/dL (8.4-10.2) 10/14/20 05:14 Ferritin 1257.0 ng/mL (30.0-300.0) H 10/14/20 10:37 Total Bilirubin 0.30 mg/dL (0.1-1.2) 10/14/20 05:14 AST 22 units/L (5-40) 10/14/20 05:14 ALT 55 units/L (7-56) 10/14/20 05:14 Alkaline Phosphatase 50 units/L (35-129) 10/14/20 05:14 Lactate Dehydrogenase 270 units/L (91-180) H 10/14/20 10:37 C-Reactive Protein 4.10 mg/dL (0.00-1.30) H 10/14/20 10:37 Total Protein 7.0 g/dL (6.3-8.2) 10/14/20 05:14 Albumin 3.8 g/dL (3.9-5) L 10/14/20 05:14 Albumin/Globulin Ratio 1.2 % 10/14/20 05:14 Procalcitonin < 0.05 ng/mL (<0.15) 10/09/20 19:34 Urine Color Yellow (Yellow) 10/09/20 01:25 Urine Turbidity Clear (Clear) 10/09/20 01:25 Urine pH 5.0 (5.0-7.0) 10/09/20 01:25 Ur Specific [place] 1.018 (1.003-1.030) 10/09/20 01:25 Urine Protein <15 mg/dl mg/dL (Negative) 10/09/20 01:25 Urine Glucose (UA) Neg mg/dL (Negative) 10/09/20 01:25 Urine Ketones 20 mg/dL (Negative) 10/09/20 01:25 Urine Blood Neg (Negative) 10/09/20 01:25 Urine Nitrite Neg (Negative) 10/09/20 01:25 Urine Bilirubin Neg (Negative) 10/09/20 01:25 Urine Urobilinogen < 2.0 mg/dL (<2.0) 10/09/20 01:25 Ur Leukocyte Esterase Neg (Negative) 10/09/20 01:25 Urine WBC (Auto) 2.0 /HPF (0.0-6.0) 10/09/20 01:25 Urine RBC (Auto) 3.0 /HPF (0.0-6.0) 10/09/20 01:25 Urine Mucus Few /HPF 10/09/20 01:25 Coronavirus (PCR) Positive (Negative) A 10/10/20 09:00 Influenza A (Rapid) Negative (Negative) 10/09/20 18:50 Influenza B (Rapid) Negative (Negative) 10/09/20 18:50 Perez/IV: Voiding Method Toilet IV Catheter Type [Left INT / Saline Lock Antecubital] Active Medications - Current Medications Current Medications: Generic Name Dose Route Start Last Admin Trade Name Freq PRN Reason Stop Dose Admin Acetaminophen 650 mg 10/10/20 01:57 10/12/20 23:50 Acetaminophen 325 Mg Tab PO 650 mg Q4H PRN Administration Pain MILD(1-3)/Fever >100.5/ARCHER Ascorbic Acid 1,000 mg 10/10/20 02:00 10/14/20 09:53 Ascorbic Acid 500 Mg Tab PO 1,000 mg BID KAREEM Administration Cholecalciferol 5,000 unit 10/10/20 10:00 10/14/20 09:53 Cholecalciferol (Vit D3) 5,000 Unit Tab PO 5,000 unit DAILY KAREEM Administration Dexamethasone 6 mg 10/12/20 10:00 10/14/20 09:52 Dexamethasone 4 Mg/Ml Vial IV 10/19/20 10:01 6 mg Q24HR KAREEM Administration Enoxaparin Sodium 40 mg 10/10/20 22:00 10/13/20 22:06 Enoxaparin 40 Mg/0.4 Ml Inj SUB-Q 40 mg QDAY@2200 KAREEM Administration Protocol Famotidine 20 mg 10/10/20 02:00 10/14/20 09:53 Famotidine 20 Mg Tab PO 20 mg BID KAREEM Administration Hydromorphone HCl 0.5 mg 10/10/20 01:57 Hydromorphone 1 Mg/1 Ml Inj IV Q3H PRN Pain , Severe (7-10) REMDESIVIR 100 mg/ Sodium 250 mls @ 500 mls/hr 10/13/20 21:00 10/13/20 22:06 Chloride IV 10/16/20 21:29 500 mls/hr Q24HR@2100 KAREEM Administration Ondansetron HCl 4 mg 10/10/20 01:57 Ondansetron 4 Mg/2 Ml Inj IV Q8H PRN Nausea And Vomiting Oxycodone/Acetaminophen 1 tab 10/10/20 01:57 Oxycodone /Acetaminophen 5-325mg Tab PO Q6H PRN Pain, Moderate (4-6) Pseudoephedrine/Acetam/Chlorphenir 10 ml 10/11/20 18:13 10/11/20 22:16 Guaifenesin/Codeine 100-10mg Oral Liqd 5 Ml PO 10 ml Q4H PRN Administration Cough Sodium Chloride 10 ml 10/10/20 10:00 10/14/20 09:54 Sodium Chloride 0.9% 10 Ml Flush Syringe IV 10 ml BID KAREEM Administration Sodium Chloride 10 ml 10/10/20 01:57 Sodium Chloride 0.9% 10 Ml Flush Syringe IV PRN PRN LINE FLUSH Sodium Chloride 50 ml 10/12/20 12:00 10/13/20 22:07 Sodium Chloride 0.9% 50 Ml Ivpb IV 10/16/20 21:01 50 ml 2100 KAREEM Administration
[2020-10-14] MEDS: REMDESIVIR 100 MG in SODIUM CHLORIDE 0.9% 250ML 250 ML IV SCH (21:46)
[2020-10-14] MEDS: ENOXAPARIN 40 MG/0.4 ML INJ SUB-Q SCH (21:47)
[2020-10-14] MEDS: SODIUM CHLORIDE 0.9% 50 ML IVPB IV SCH (21:47)
[2020-10-14] MEDS: guaiFENesin/CODEINE 100-10MG ORAL LIQD 5 ML PO PRN (21:47)
[2020-10-15 06:22] LABS: Alanine Aminotransferase 47 units/L (7-56); Albumin 3.7 g/dL (3.9-5); Blood Urea Nitrogen 19 mg/dL (9-20); Calcium 8.6 mg/dL (8.4-10.2); Hemolysis Index 16
[2020-10-15 06:32] LABS: BUN/Creatinine Ratio 27
--- NOTE | 2020-10-15 09:17 | Discharge Summary ---
Providers - Providers Date of Admission: 10/10/20 12:00 Date of discharge: 10/15/20 Attending physician: SENTHIL DÍAZ 10/09/20 19:42 Consult to Physician [CONS] Urgent Comment: Consulting Provider: PAUL LINDSAY Physician Instructions: Reason For Exam: hypoxia, pneumoina, r/o covid Primary care physician: INSPECTOR EYEGLASS FRAMES Hospitalization Reason for admission: COVID PNA Condition: Stable Hospital course: 39-year-old man past medical history hypertension admitted to the hospital complaining of cough and fevers. His symptoms began approximately October 01. He had repeat negative Covid test on October 05 and October 08. On presentation to ER test positive for COVID-19. The patient was admitted with diagnosis of sepsis )present on admission as evidenced by tachycardia, leukocytosis and diagnosis of pneumonia), Covid pneumonia and acute hypoxic respiratory failure. In the emergency room, patient was noted to be Febrile to 101.9 on admission with a white count of 5. Covid positive. Procalcitonin normal. Renal function normal. Patient was initially treated with ceftriaxone azithromycin. He was also found to be mildly hypoxic but not below 90%, however ambulatory oxygen at 84%. Chest x-ray: Right-sided parenchymal disease. The patient was treated with dexamethasone 6 mg IV and remdesivir. Inflammatory markers were not terribly elevated. The patient underwent exercise pulse oximetry testing which revealed Room Air resting pulse ox. 94% Room air pulse ox. during exercise 88 % Pulse ox on 2 l n/c during exercise 90 %. Therefore, patient is felt to receive maximal hospital benefit and will discharge home with oxygen and dexamethasone. Dedicated discharge time 35 minutes Disposition: - TO HOME OR SELFCARE Time spent for discharge: 35 - Discharge Diagnoses (1) Sepsis Status: Acute (2) COVID-19 Status: Acute (3) Acute respiratory failure with hypoxia Status: Acute (4) Pneumonia Status: Acute (5) HTN (hypertension) Status: Chronic Qualifiers: Hypertension type: essential hypertension Qualified Code(s): I10 - Essential (primary) hypertension Core Measure Documentation - Palliative Care Palliative Care/ Comfort Measures: Not Applicable - Core Measures Any of the following diagnoses?: none Exam - Constitutional Vitals: Temp Pulse Resp BP Pulse Ox 97.3 F L 64 18 109/67 95 10/15/20 03:54 10/15/20 03:54 10/15/20 03:54 10/15/20 03:54 10/15/20 03:54 General appearance: Present: no acute distress, well-nourished - EENT Eyes: Present: PERRL ENT: hearing intact, clear oral mucosa - Neck Neck: Present: supple, normal ROM - Respiratory Respiratory effort: normal Respiratory: bilateral: CTA - Cardiovascular Heart Sounds: Present: S1 & S2. Absent: rub, click - Extremities Extremities: pulses symmetrical, No edema Peripheral Pulses: within normal limits - Abdominal General gastrointestinal: Present: soft, non-tender, non-distended, normal bowel sounds Male genitourinary: Present: normal - Integumentary Integumentary: Present: clear, warm, dry - Musculoskeletal Musculoskeletal: gait normal, strength equal bilaterally - Psychiatric Psychiatric: appropriate mood/affect, intact judgment & insight - Neurologic Neurologic: CNII-XII intact, moves all extremities Plan Activity: advance as tolerated Weight Bearing Status: Weight Bear as Tolerated Diet: regular Special Instructions: home oxygen via Follow up with: PRIMARY CARE, [Primary Care Provider] - 3-5 Days Prescriptions: dexAMETHasone [Decadron] 6 mg PO DAILY #5 tablet Ascorbic Acid [Vitamin C] 1,000 mg PO BID #60 tablet Cholecalciferol (Vitamin D3) [Vitamin D3] 5,000 unit PO DAILY #60 tablet
[2020-10-15] MEDS: CHOLECALCIFEROL (VIT D3) 5,000 UNIT TAB PO SCH (09:40)
[2020-10-15] MEDS: ASCORBIC ACID 500 MG TAB PO SCH (09:40)
[2020-10-15] MEDS: FAMOTIDINE 20 MG TAB PO SCH (09:40)
[2020-10-15] MEDS ORDERED: DEXAMETHASONE 4 MG TAB PO SCH (10:00)
[2020-10-15 13:17] VITALS: BP 122/79
== END 2020-10-15 14:55 | disposition home or self-care (01) | DRG 871 ==
LOC: ED 17:58 → 3A 19:38 → EDBD 19:38 → 3A 10-10 00:56 → OBSVTOIN 10-10 12:00
PROVIDERS: ADMIT Internal Medicine; ATTEND Hospitalist
PROC: XW033E5 Introduction of Remdesivir Anti-infective into Peripheral Vein, Percutaneous Approach, New Technology Group 5 (ICD-10-PCS; principal; 2020-10-12)
DX: A41.89 Other specified sepsis (principal); U07.1 COVID-19; J96.01 Acute respiratory failure with hypoxia; J12.82 Pneumonia due to coronavirus disease 2019; I10 Essential (primary) hypertension; Z79.899 Other long term (current) drug therapy
CPT/HCPCS: 36415; 71045; 80048; 80053; 81001; 82140; 82728; 82947; 83036; 83615; 84145; 85025; 85379; 86140; 87400; 93005; 94760; 96365; 96375; G0378; J0456; J0696; J1100; J1650; J7030; J7050; J8540; U0003